=== PATIENT | male | born 1985 | race American Indian/Alaskan Native ===

== ENCOUNTER 2019-02-13 16:53 | Emergency (ER) | payer SELFPAY ==
[2019-02-13 17:03] VITALS: BP 141/77; PULSE 102; TEMP 99.6; BMI 28.9
--- NOTE | 2019-02-13 17:31 | PDOC ---
History of Present Illness - General Chief Complaint: Pain Stated Complaint: GROIN PROBLEM Time Seen by Provider: 02/13/19 17:22 - History of Present Illness Initial Comments: 02/13/19 17:27 33-year-old male without comorbidities presents for evaluation of right-sided and left-sided groin pain 4 weeks recently exacerbated when he began to play cricket again. Past History - Past Medical History Allergies/Adverse Reactions: Allergies Allergy/AdvReac Type Severity Reaction Status Date / Time No Known Allergies Allergy Unverified 02/13/19 17:00 Home Medications: Ambulatory Orders Ibuprofen [Motrin -] 600 mg PO TID #30 tablet 02/13/19 - Suicide/Smoking/Psychosocial Hx Smoking History: Current every day smoker Number of Cigarettes Smoked Daily: 10 Information on smoking cessation initiated: Yes Hx Alcohol Use: Yes Drug/Substance Use Hx: No Review of Systems - Review of Systems Musculoskeletal: Yes: Joint Pain *Physical Exam - Vital Signs Last Vital Signs Temp Pulse Resp BP Pulse Ox 99.6 F 102 H 18 141/77 98 02/13/19 17:00 02/13/19 17:00 02/13/19 17:00 02/13/19 17:00 02/13/19 17:00 - Physical Exam Comments: 02/13/19 17:27 Bilateral hip range of motion is full and nonpainful. Range of motion is full and nonpainful in all planes. 5 out of 5 strength bilateral lower extremities without gross sensory motor deficits. resisted adduction causes groin pain neurovascularly intact Medical Decision Making - Medical Decision Making 02/13/19 17:28 Lateral hip strain. Motrin, rest, follow-up with orthopedic *DC/Admit/Observation/Transfer Diagnosis at time of Disposition: Strain of hip adductor muscle - Discharge Dispostion Disposition: HOME Condition at time of disposition: Stable Decision to Admit order: No - Referrals Referrals: Veronica Finney MD [Primary Care Provider] - Partha Gonsales DO [Staff Physician] - - Patient Instructions Printed Discharge Instructions: Muscle Strain, Groin Strain, DI for Muscle Strain Additional Instructions: Please take the Motrin as directed with food discontinue the medication if it bothers her stomach. Avoid sports until cleared by orthopedic surgery. Return to the emergency room for worsening symptoms. Without fail, follow-up with orthopedic surgery next 2-3 days. - Post Discharge Activity
== END 2019-02-13 17:33 | disposition home or self-care (01) ==
LOC: JERFT 16:53
DX: S76.012A Strain of muscle, fascia and tendon of left hip, initial encounter (principal); S76.011A Strain of muscle, fascia and tendon of right hip, initial encounter; X58.XXXA Exposure to other specified factors, initial encounter; Y93.9 Activity, unspecified; Y92.9 Unspecified place or not applicable; F17.210 Nicotine dependence, cigarettes, uncomplicated
CPT/HCPCS: 99281-25